=== PATIENT | male | born 1975 | race Caucasian/White ===

== ENCOUNTER 2023-09-18 15:53 | Inpatient (IN) | payer OTHER ==
[~2023-09-18] VITALS: Ht 177.8 cm; Wt 95.5 kg
[2023-09-18 17:45] VITALS: BP 163/105; PULSE 80; RESP 18; TEMP 98.6
[2023-09-18] MEDS ORDERED: Morphine 2mg Syringe 2 MG/ML SYR IV PRN (18:00)
[2023-09-18] MEDS ORDERED: ONDANSETRON HCL INJ 2MG/ML 2ML 2 MG/ML VIAL IV PRN (18:00)
[2023-09-18 18:25] VITALS: BP 163/105; PULSE 80; RESP 18; TEMP 98.6; O2SAT 96
[2023-09-18] MEDS: DEXTROSE 5%/0.9% SOD CHL 1,000 ML IV ONE (18:28)
[2023-09-18] MEDS ORDERED: no home meds (18:42)
[2023-09-18] MEDS ORDERED: HYDRALAZINE HCL 20 MG/ML VIAL IV PRN (19:15)
[2023-09-18] MEDS ORDERED: MAALOX/LIDOCAINE/BENADRYL/NYST 30 ML BTL PO PRN (19:30)
[2023-09-18 20:00] VITALS: BP 129/99; PULSE 105; RESP 18; TEMP 98.4; O2SAT 95
[2023-09-18] MEDS: LIDOCAINE VISC 2% SOLN 15 ML UDC PO ONE (20:21)
[2023-09-18 21:00] VITALS: BP 129/99; PULSE 105; RESP 18; TEMP 98.4; O2SAT 95
[2023-09-18] MEDS: METOCLOPRAMIDE HCL 10 MG/2ML VIAL IV SCH (23:17)
[2023-09-19] VITALS (9 sets, daily range): BP systolic 128–147; BP diastolic 79–94; PULSE 74–89; RESP 16–19; TEMP 97.4–98.7; O2SAT 92–96
[2023-09-19] MEDS ORDERED: BENZONATATE 100 MG CAP PO PRN (15:45)
[2023-09-19] MEDS ORDERED: DEXTROSE 50% SYRINGE 50 ML IV PRN (15:45)
[2023-09-19] MEDS ORDERED: MELATONIN 5 MG TABLET PO PRN (15:45)
[2023-09-19] MEDS ORDERED: HYDRALAZINE HCL 20 MG/ML VIAL IV PRN (15:45)
[2023-09-19] MEDS ORDERED: SIMETHICONE 80 MG CHEW PO PRN (15:45)
[2023-09-19] MEDS ORDERED: ONDANSETRON HCL INJ 2MG/ML 2ML 2 MG/ML VIAL IV PRN (15:45)
[2023-09-19] MEDS ORDERED: POTASSIUM CHLORIDE 20 MEQ TAB CR PO PRN (15:45)
[2023-09-19] MEDS ORDERED: DOCUSATE SODIUM 100 MG CAP PO PRN (15:45)
[2023-09-19] MEDS ORDERED: DIPHENHYDRAMINE HCL 25 MG CAP PO PRN (15:45)
[2023-09-19] MEDS ORDERED: ALBUTEROL/IPRATROPIUM 3 ML NEB NEB PRN (15:45)
[2023-09-19] MEDS ORDERED: ACETAMINOPHEN 325 MG TAB PO PRN (15:45)
[2023-09-19] MEDS ORDERED: LIDOCAINE 4% PATCH TP PRN (15:45)
[2023-09-19] MEDS: DEXTROSE 5%/0.9% SOD CHL 1,000 ML IV SCH (16:47)
[2023-09-20] VITALS (11 sets, daily range): BP systolic 117–146; BP diastolic 79–99; PULSE 65–77; RESP 16–20; TEMP 97.6–99.1; O2SAT 94–97
[2023-09-20 06:07] LABS: BASOPHILS % 0.3 % (0.0-1.0); EOSINOPHILS # (AUTO) 0.3 (0.0-0.4); EOSINOPHILS % 4.1 % (0.0-6.0); HEMATOCRIT 38.5 % (38.2-49.6); HEMOGLOBIN 13.7 g/dL (14.0-18.0); LYMPHOCYTES # (AUTO) 1.1 (1.0-3.2); LYMPHOCYTES % 15.4 % (18.0-39.1); MEAN CORPUSCULAR HEMOGLOBIN 32.3 pg (28-32); MEAN CORPUSCULAR HGB CONC 35.6 g/dL (31-35); MEAN CORPUSCULAR VOLUME 90.8 fL (81-99); MONOCYTES # (AUTO) 0.8 (0.2-0.8); NEUTROPHILS # (AUTO) 4.9 (2.1-6.9); NEUTROPHILS % 68.9 % (38.7-80.0); PLATELET COUNT 222 x10e3/uL (140-360); RED BLOOD COUNT 4.24 x10e6/uL (4.3-5.7); RED CELL DISTRIBUTION WIDTH 12.5 % (11.7-14.4); WHITE BLOOD COUNT 7.15 x10e3/uL (4.8-10.8)
[2023-09-20 06:20] LABS: ALBUMIN 3.4 g/dL (3.5-5.0); ALBUMIN/GLOBULIN RATIO 0.9 (0.8-2.0); ANION GAP 15.9 mmol/L (8-16); BILIRUBIN,TOTAL 0.9 mg/dL (0.2-1.2); CALCIUM 8.9 mg/dL (8.4-10.2); CREATININE, SERUM 0.95 mg/dL (0.72-1.25); POTASSIUM 3.9 mmol/L (3.5-5.1)
[2023-09-20 06:45] LABS: MAGNESIUM 1.8 MG/DL (1.3-2.1)
[2023-09-20 07:08] LABS: THYROID STIMULATING HORMONE 5.252 uIU/mL (0.350-4.940)
[2023-09-20] MEDS ORDERED: PANTOPRAZOLE SOD 40 MG TABEC PO SCH (07:30)
[2023-09-20 09:47] LABS: BILIRUBIN,URINE NEGATIVE (NEGATIVE); CLARITY,URINE CLEAR (CLEAR); COLOR,URINE YELLOW (YELLOW); GLUCOSE, URINE NEGATIVE (NEGATIVE); KETONES,URINE NEGATIVE (NEGATIVE); LEUKOCYTE ESTERASE ,URINE NEGATIVE (NEGATIVE); NITRITE,URINE NEGATIVE (NEGATIVE); PH,URINE 7 (5 - 7); PROTEIN,URINE DIPSTICK NEGATIVE (NEGATIVE)
[2023-09-20 10:04] LABS: BACTERIA,URINE FEW /HPF; RBC,URINE 0-5 /HPF (0-5); WBC,URINE (MAN) 0-5 /HPF (0-5)
[2023-09-20] MEDS ORDERED: MIDAZOLAM HCL 2 MG/2 ML VIAL ONE (12:43)
[2023-09-20] MEDS: LACTULOSE SYRUP 20 GM/30 ML UDC PO ONE (12:45)
[2023-09-20] MEDS: SUCRALFATE 1 GM/10 ML SUSP NG SCH (12:49)
[2023-09-20] MEDS ORDERED: LIDOCAINE HCL 2% LOCAL INJ 5 ML SDV VIAL INJ ONE (13:20)
[2023-09-20] MEDS ORDERED: SODIUM CHLORIDE 0.9% INJ 100 ML BAG ONE (13:20)
[2023-09-20] MEDS ORDERED: DEXMEDETOMIDINE HCL 200 MCG/2 ML VIAL ONE (13:20)
[2023-09-20] MEDS ORDERED: PROPOFOL IV EMULSION 10 MG/ML 50 ML VIAL IV ONE (13:20)
[2023-09-21] VITALS: BP 134/89; PULSE 64; RESP 20; TEMP 97.6; O2SAT 94
[2023-09-21 04:00] VITALS: BP 147/94; PULSE 60; RESP 20; TEMP 97.6; O2SAT 94
[2023-09-21 06:39] VITALS: PULSE 74; RESP 20; O2SAT 95
[2023-09-21 08:00] VITALS: BP 147/94; PULSE 74; RESP 20; TEMP 97.6; O2SAT 95
[2023-09-21 09:26] VITALS: BP 122/76; PULSE 64; RESP 18; TEMP 98; O2SAT 95
[2023-09-21] MEDS ORDERED: CARAFATE1 GM/10 ML PO (09:30)
[2023-09-21] MEDS ORDERED: PANTOPRAZOLE SO40 MG PO (09:30)
[2023-09-21] MEDS ORDERED: ONDANSETRON HCL 4 MG ORAL DISINTEGRATING TAB PO PRN (10:30)
[2023-09-21 12:22] VITALS: BP 148/99; PULSE 63; RESP 20; TEMP 98.1; O2SAT 96
== END 2023-09-21 12:16 | disposition home or self-care (01) | DRG 382 ==
LOC: MED/SURG2 17:10
PROVIDERS: ADMIT Internal Medicine; ATTEND Internal Medicine
PROC: 0DB58ZZ Excision of Esophagus, Via Natural or Artificial Opening Endoscopic (ICD-10-PCS; principal; 2023-09-20 11:28)
DX: K22.10 Ulcer of esophagus without bleeding (principal); K44.9 Diaphragmatic hernia without obstruction or gangrene; K29.70 Gastritis, unspecified, without bleeding; K29.80 Duodenitis without bleeding; R13.10 Dysphagia, unspecified; Z87.442 Personal history of urinary calculi; E66.9 Obesity, unspecified; Z68.30 Body mass index [BMI] 30.0-30.9, adult
CPT/HCPCS: 36415; 36568; 43239; 74018; 74220; 80053; 81001; 83036; 83735; 84443; 84484; 85025; 88305; 88312; 88342; 94799; J2001; J2250; J2765; J7042; J7050